=== PATIENT | female | born 1965 | race Caucasian/White ===

== ENCOUNTER → 2019-07-05 | Outpatient (CLI) | payer OTHER ==
[~2019-07-05] VITALS: Ht 175.3 cm; Wt 66.7 kg
[~2019-07-05] MED LIST: ACTEMRA80 MG/4 ML IV; ACYCLOVIR 200200 MG PO; AMBEREN; ATIVAN0.5 MG PO; CALCIUM; CELEBREX 200 M200 MG PO; DILANTIN100 MG PO; ESTRADIOL TRAN1 EAC2 TD; FOLIC ACID1 MG PO; HYDROCODON-ACE1 EACH PO; KEPPRA 500 MG500 M1 PO; LYRICA 75 MG CA75 MG PO; METHOTREXATE 22.5 MG PO; ORACEA40 MG; PREDNISOLONE 5 M5 M1 PO; PREDNISONE 2.52.5 M1 PO; PROGESTERONE100 MG PO; RESTASIS1 EACH OPHTHALMIC; SKELAXIN 800 M800 M1 PO; SYNTHROID100 MCG PO; VITAMIN D 5050000 I1; [UNRECOGNIZED DRUG - OTHER] PO
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
[2019-07-05 09:47] VITALS: BP 118/69
--- NOTE | 2019-07-05 09:50 | NUR ---
Pain Clinic Assessment: 1. History of Osteoarthritis: YES History of Rheumatoid Arthritis: YES 2. Height: 5 ft. 9 in. 175.3 cm. Weight: 147.0 lb. oz. 66.679 kg. Patient's BMI: 21.7 3. Vital Signs: BP: 118/69 Pulse: 80 Resp: 14 Temp: 02 Sat: 100 ECG Mon: 4. Pain Intensity: 5 5. Fall Risk: Dizziness: N Needs help standing or walking: N Fallen in the last 3 months: N Fall risk comments: 6. Patient on Blood Thinner: None 7. History of Hypertension: N 8. Opioid Therapy greater than 6 weeks: Y Opiate Contract Signed: 9. Risk Assessment Tool Provided: LOW RISK 1 10. Functional Assessment Tool: 11. Recreational Drug Use: Never Drug Type: Tobacco Use: Never Smoker Tobacco Type: Amount or Packs/day: How Many Years: Alcohol Use: Yes Frequency: Quant:
== END ==
LOC: PAIN 06:47
DX: G50.0 Trigeminal neuralgia (principal); M06.9 Rheumatoid arthritis, unspecified; M17.11 Unilateral primary osteoarthritis, right knee; M54.5 Low back pain; M16.12 Unilateral primary osteoarthritis, left hip; Z96.642 Presence of left artificial hip joint